=== PATIENT | female | born 1975 | race Caucasian/White ===

== ENCOUNTER 2016-05-04 17:46 | Emergency (ER) | payer MEDICAID ==
[~2016-05-04] VITALS: Ht 152.4 cm; Wt 91.0 kg
[2016-05-04 17:52] VITALS: Ht 152.4 cm; Wt 91.0 kg
[2016-05-04] MEDS ORDERED: IBUP400T22 PO (19:03)
[2016-05-04] MEDS ORDERED: CETI10CA PO (19:03)
[2016-05-04] MEDS ORDERED: FIORICET PO (19:03)
--- NOTE | 2016-05-04 19:10 | ERD ---
ER Documentation Chief Complaint Date/Time DATE: 05/04/16 TIME: 19:05 Chief Complaint HEADACHE & RT EAR PAIN RUNNY NOSE NASAL CONGESTION, NECK PAIN 1 WEEK ` HPI 41-year-old female presents here in emergency department for complaints of headache, right ear pain, runny nose nasal congestion, right-sided neck pain for one week. Patient dry the pain as throbbing pain, 6/10 scale, worse upon movement of the neck area radiates from the neck to the head, also feels congestion in the right ear. Patient has been having runny nose nasal congestion clear nasal discharge. Patient does not have any sore throat or ear pain. Patient denies any trauma in the neck. Patient denies any neck stiffness. Patient denies any blurry vision, numbness and tingling, focal weakness. Patient denies any trauma. Patient denies any loss of consciousness, changes in balance or memory. Patient did not take any medications to help with symptoms. Denies any ear discharge. Patient denies any foreign body in the ear. ROS All systems reviewed and are negative except as per history of present illness. Medications Home Meds Active Scripts Cetirizine Hcl* (Zyrtec*) 10 Mg Capsule, 10 MG PO DAILY, #30 TAB.CHEW Prov:ANDRADE OZUNA NP 05/04/16 Acetamin/Butalbital/Caffeine* (Fioricet*) [id number] Tab, 1 TAB PO Q6H Y for PAIN, #30 TAB Prov:ANDRADE OZUNA CHEMIST ASSISTANT 05/04/16 Ibuprofen* (Motrin*) 400 Mg Tab, 400 MG PO Q6H Y for PAIN AND OR ELEVATED TEMP, #30 TAB Prov:ANDRADE OZUNA CHEMIST ASSISTANT 05/04/16 Allergies Allergies: Coded Allergies: No Known Drug Allergies (Verified Allergy, Mild, 01/11/14) PMhx/Soc Medical and Surgical Hx: pt denies Medical Hx, pt denies Surgical Hx FmHx Family History: diabetes Physical Exam Vitals Vital Signs Date Time Temp Pulse Resp B/P Pulse Ox O2 Delivery O2 Flow Rate FiO2 05/04/16 17:52 98.0 72 18 141/86 100 Physical Exam GENERAL: The patient is well developed and appropriate for usual state of health, in no apparent distress. CHEST: Clear to auscultation bilaterally. There are no rales, wheezes or rhonchi. HEENT: Atraumatic. Ears: Normal tympanic membrane, no erythema or bulging. No ear canal swelling. No ear discharge. Nose: Erythematous nasal turbinates with clear nasal discharge. Throat: oropharynx erythematous with postnasal drip. No tonsillar swelling or tonsillar exudates. No lymphadenopathy. HEART: Regular rate and rhythm. No murmurs, clicks, rubs or gallops. No S3 or S4. ABDOMEN: Soft, nontender and nondistended. Good bowel sounds. No rebound or guarding. No gross peritonitis. No gross organomegaly or masses. No Sapp sign or McBurney point tenderness. BACK: No midline or flank tenderness. Noted muscle spasms on the right paraspinal aspect of the cervical spine, able to do full range of motion without any restriction. EXTREMITIES: Equal pulses bilaterally. There is no peripheral clubbing, cyanosis or edema. No focal swelling or erythema. Full range of motion. Grossly neurovascularly intact. NEURO: Alert and oriented. Cranial nerves 2-12 intact. Motor strength in all 4 extremities with 5/5 strength. Sensation grossly intact. Normal speech and gait. Negative Kernig's sign. Negative Brudzinski's sign. Bilateral eyes are PERRL EOM intact. Negative Romberg sign. Negative pronator drift. SKIN: There is no apparent rash or petechia. The skin is warm and dry. HEMATOLOGIC AND LYMPHATIC: There is no evidence of excessive bruising or lymphedema. No gross cervical, axillary, or inguinal lymphadenopathy. Procedures/MDM Medical Decision Making: Patient symptoms are most likely consistent with upper respiratory tract infection. Right ear pain most likely from congestion from the runny nose nasal congestion, no otitis media, otitis externa or mastoiditis noted. The symptoms of neurologic emergencies at this time. CT scan of the brain at indicated at this time. Any radiology exam is not indicated at this time. No trauma involved noted. No symptoms of meningitis. Patient does not have any fever. No neck stiffness, negative Brudzinski and Kernig sign. Patient appears well and is hemodynamically stable. Patient does not have any symptoms of sepsis at this time. Disposition: Home. Condition: Stable Prescriptions: Ibuprofen, Fioricet, Zyrtec Instructions: Patient is advised to take medications as prescribed. Patient is advised to rest. Patient advised to increase fluid intake, do humidifier at home and if possible, do salt water gargles. Patient is advised that if symptoms are worse, shortness of breath, uncontrolled fever, stridor, vomiting, worst signs and symptoms to return to emergency department immediately. Otherwise, patient is advised to follow up with primary doctor in 5-7 days. Departure Diagnosis: Primary Impression: Headache Headache type: unspecified Headache chronicity pattern: acute headache Intractability: not intractable Qualified Code: R51 - Acute nonintractable headache, unspecified headache type Additional Impressions: URI (upper respiratory infection) URI type: unspecified viral URI Qualified Code: J06.9 - Viral upper respiratory tract infection Neck strain Encounter type: initial encounter Qualified Code: S16.1XXA - Neck strain, initial encounter Condition: Stable Patient Instructions: Self-Care for Headaches, Neck Sprain/Strain, Uri, Viral, No Abx (Adult) Referrals: [facility] Usted se scott hecho un examen mdico de control que le indica que no est en dilip condicin que requiera tratamiento urgente en el Departamento de Emergencia. Un estudio ms profundo y el tratamiento de alfaro condicin pueden esperar sin ningn riesgo hasta que usted sea atendida/o en el consultorio de alfaro mdico o dilip cl claudette. Es responsabilidad suya arreglar dilip dilia para el seguimiento del laury. MANEJO DE CONDICIONES NO URGENTES EN EL FUTURO 1) Si usted tiene un mdico de atencin primaria: Usted debera llamar a alfaro mdico de atencin primaria antes de venir al departamento de emergencia. Despus de las horas de consultorio, alfaro doctor o alfaro asociado/a est disponible por telfono. El mdico o enfermero de fely en el servicio telefnico puede asesorarle por dave medio para atender el problema, o laury contrario se puede programar dilip dilia. 2) Si usted no tiene un mdico de atencin primaria: Llame al mdico o clnica de referencia que aparece abajo britton las horas de consultorio para hacer dilip dilia para que le vean. CLINICAS: [facility] [phone] [facility] [phone] [facility] [phone] [place] [address] [phone] [place] [address] [phone] [facility]. [phone] [address] [facility]. [facility] () Usted se scott hecho un examen mdico de control que le indica que no est en dilip condicin que requiera tratamiento urgente en el Departamento de Emergencia. Un estudio ms profundo y el tratamiento de alfaro condicin pueden esperar sin ningn riesgo hasta que usted sea atendida/o en el consultorio de alfaro mdico o dilip cl claudette. Es responsabilidad suya arreglar dilip dilia para el seguimiento del laury. MANEJO DE CONDICIONES NO URGENTES EN EL FUTURO 1) Si usted tiene un mdico de atencin primaria: Usted debera llamar a alfaro mdico de atencin primaria antes de venir al departamento de emergencia. Despus de las horas de consultorio, alfaro doctor o alfaro asociado/a est disponible por telfono. El mdico o enfermero de fely en el servicio telefnico puede asesorarle por dave medio para atender el problema, o laury contrario se puede programar dilip dilia. 2) Si usted no tiene un mdico de atencin primaria: Llame al mdico o condado institucions de referencia que aparece abajo britton las horas de consultorio para hacer dilip dilia para que le vean. SI USTED NO PUEDE PAGAR PARA JOSE ANTONIO UN MEDICO puede ir a: [facility] [address] [place] [address] [facility] [address] [place], [place] [id number] [place] [address] [address] [place] [address] [facility] [address] [place], [place] [id number] CUCHILANGO,ANDRADE Echavarria NP May 04, 2016 19:10
== END 2016-05-04 19:02 | disposition home or self-care (01) ==
LOC: E/R 17:46
DX: R51 Headache (principal); J06.9 Acute upper respiratory infection, unspecified; S16.1XXA Strain of muscle, fascia and tendon at neck level, initial encounter; X58.XXXA Exposure to other specified factors, initial encounter; Y92.9 Unspecified place or not applicable
CPT/HCPCS: 99282

== ENCOUNTER 2016-09-26 08:45 | Emergency (ER) | payer MEDICAID, OTHER ==
[~2016-09-26] VITALS: Wt 85.5 kg
[~2016-09-26 08:45] MED LIST: CETI10CA PO; FIORICET PO; IBUP400T22 PO
[2016-09-26] MEDS ORDERED: LIDOCAINE/MYLANTA 40 ML BTL PO ONE (10:00)
--- NOTE | 2016-09-26 10:09 | RADRPT ---
PROCEDURE: Chest Radiograph. CLINICAL INDICATION: Chest pain. TECHNIQUE: Single frontal chest radiograph. COMPARISON: Chest radiograph 01/11/2014 FINDINGS: The cardiomediastinal silhouette is within normal limits. No infiltrate or effusion is seen. Th e bones are intact. IMPRESSION: 1. Unremarkable chest radiograph. RPTAT: AA .Servando Orozco MD, MD Date Time Electronically viewed and signed by .Servando Orozco MD, on 09/26/2016 10:08 .B/
[2016-09-26] MEDS ORDERED: RANI150T9 PO (10:55)
--- NOTE | 2016-09-26 11:12 | ERD ---
ER Documentation Chief Complaint Date/Time DATE: 09/26/16 TIME: 11:06 Chief Complaint BACK PAIN, BURPING A LOT, NO N/V HPI 41-year-old female otherwise healthy comes emergency department with mid upper back pain and epigastric abdominal pain and belching that started last night when she tried to get up out of bed. Pain is achy, mild. Patient states that since then she has had belching, discomfort. She has not had any shortness of breath, chest pain, dizziness. She denies fevers, chills, cough. ROS All systems reviewed and are negative except as per history of present illness. Medications Home Meds Active Scripts Ranitidine Hcl* (Zantac*) 150 Mg Tablet, 150 MG PO DAILY Y for EPIGASTRIC PAIN, #30 TAB Prov:MO WATKINS PA-C 09/26/16 Cetirizine Hcl* (Zyrtec*) 10 Mg Capsule, 10 MG PO DAILY, #30 TAB.CHEW Prov:ANDRADE OZUNA CORRECTIONAL LIEUTENANT 05/04/16 Acetamin/Butalbital/Caffeine* (Fioricet*) [id number] Tab, 1 TAB PO Q6H Y for PAIN, #30 TAB Prov:ANDRADE OZUNA. CORRECTIONAL LIEUTENANT 05/04/16 Ibuprofen* (Motrin*) 400 Mg Tab, 400 MG PO Q6H Y for PAIN AND OR ELEVATED TEMP, #30 TAB Prov:ANDRADE OZUNA. CORRECTIONAL LIEUTENANT 05/04/16 Allergies Allergies: Coded Allergies: No Known Drug Allergies (Verified Allergy, Mild, 01/11/14) PMhx/Soc Medical and Surgical Hx: pt denies Medical Hx, pt denies Surgical Hx Hx Alcohol Use: No Hx Substance Use: No Hx Tobacco Use: No Physical Exam Vitals Vital Signs Date Time Temp Pulse Resp B/P Pulse Ox O2 Delivery O2 Flow Rate FiO2 09/26/16 08:49 97.1 65 17 136/81 96 Physical Exam General: Well-developed, well-nourished. The patient appears in no acute distress. HEENT: Head is normocephalic, atraumatic. No scleral icterus. Pupils are equal , round, and reactive. Oral mucous membranes are moist. No pharyngeal erythema. Neck: Supple. Nontender. Lungs: Clear to auscultation. Normal air movement. Heart: Regular rate and rhythm. S1 and S2 are normal. No murmurs, gallops, or rubs. Abdomen: Soft, nontender, nondistended. Bowel sounds are normoactive. Extremities: No clubbing or cyanosis. Normal pulses. Moving extremities x 4. No weakness. Neurologic: Alert and oriented 3. No focal deficits. Skin: Normal turgor. No rash or lesions. Results 24 hrs Current Medications Medications (Trade) Dose Ordered Sig/Joe Route PRN Reason Start Time Stop Time Status Last Admin Dose Admin Miscellaneous Medication (Gi Cocktail (2)) 40 ml ONCE ONCE PO 09/26/16 10:00 09/26/16 10:01 DC 09/26/16 09:55 PROCEDURE: Chest Radiograph. CLINICAL INDICATION: Chest pain. TECHNIQUE: Single frontal chest radiograph. COMPARISON: Chest radiograph 01/11/2014 FINDINGS: The cardiomediastinal silhouette is within normal limits. No infiltrate or effusion is seen. The bones are intact. IMPRESSION: 1. Unremarkable chest radiograph. RPTAT: AA .Servando Orozco MD, MD Date Time Electronically viewed and signed by .Servando Orozco MD, MD on 2016 10:08 .B/ Procedures/MDM ED course: Patient was given a GI cocktail. I reassessed her, she states that her pain is relieved and she does no longer has constant belching. MDM: 41-year-old female comes emergency room with upper back pain and belching that started after trying to get out of bed. At this time she was given a GI cocktail and observed was observed in the emergency department and that she feels much better at this time. Her pain is rated 0 out of 10 and her symptoms and bulging of resolved. My suspicion for pancreatitis, dissection or aneurysm, or other acute coronary process, is low given her symptoms improved with medication received here. She was advised to continue at home a prescription for ranitidine, eat small meals and return if she has any worsening any symptoms. Departure Diagnosis: Primary Impression: Back pain Condition: Good Patient Instructions: Gerd (Adult) Additional Instructions: Llame al doctor MAANA y jean marie dilip CURT PARA DENTRO DE 1-2 ADAM.Dgale a la secretaria que nosotros le instruimos hacer esta curt.Avise o llame si alfaro condicin se empeora antes de la curt. Regresa aqui si peor o no mejor. MO WATKINS PA-C September 26, 2016 11:12
== END 2016-09-26 11:24 | disposition home or self-care (01) ==
LOC: FTE 08:45
DX: M54.6 Pain in thoracic spine (principal)
CPT/HCPCS: 71010; Z7610

== ENCOUNTER 2017-09-07 09:18 | Emergency (ER) | END 2017-09-07 12:10 | disposition home or self-care (01) ==

== ENCOUNTER 2017-11-14 14:01 | Emergency (ER) | END 2017-11-14 15:56 | disposition home or self-care (01) ==

== ENCOUNTER 2018-10-17 18:22 | Emergency (ER) | payer OTHER ==
[~2018-10-17] VITALS: Ht 157.5 cm; Wt 92.4 kg
[~2018-10-17 18:22] MED LIST changes: +ACET500C5 PO; +IBUP-1561 PO; -IBUP400T22 PO; +NAPR-985 PO; +RANI150T35 PO
[2018-10-17 18:47] VITALS: Ht 157.5 cm; Wt 92.4 kg
[2018-10-17] MEDS ORDERED: SOD CHLORIDE 0.9% 500 ML IV STA (21:02)
[2018-10-17] MEDS ORDERED: ONDANSETRON 4 MG INJ IV STA (21:02)
[2018-10-17] MEDS ORDERED: morphine 4 MG/ML VIAL IV STA (21:02)
[2018-10-17] MEDS ORDERED: ONDA4TAB14 PO (23:27)
[2018-10-17] MEDS ORDERED: CIPR500T4 PO (23:27)
[2018-10-17] MEDS ORDERED: TRAM50TA2 PO (23:27)
[2018-10-17] MEDS ORDERED: CIPROFLOXACIN 400MG/D5W 200 ML IVPB ONE (23:30)
--- NOTE | 2018-10-18 00:05 | ERD ---
ER Documentation Chief Complaint Chief Complaint abdominal pain/back pain x 1 hour HPI This is a 43-year female complains of abdominal pain that radiates to her back for the past hour. Pain is located mainly in the right upper quadrant. Mild nausea but no vomiting. No fevers no chills. No other current complaints. No exacerbating alleviating factors. No sick contacts. No recent travel. Normal bowel movements. Last ate 4 hours ago which increased the pain. ROS All systems reviewed and are negative except as per history of present illness. Medications Home Meds Active Scripts Ondansetron (Ondansetron Odt) 4 Mg Tab.rapdis, 4 MG PO Q6H PRN for NAUSEA AND/OR VOMITING, #10 TAB Prov:JOCELINE CHRISTINA. 10/17/18 Tramadol HCl (Tramadol HCl) 50 Mg Tablet, 50 MG PO Q4 PRN for PAIN, #20 TAB Prov:JOCELINE CHRISTINA. 10/17/18 Ciprofloxacin Hcl* (Ciprofloxacin Hcl*) 500 Mg Tablet, 500 MG PO BID for 7 Days, TAB Prov:JOCELINE CHRISTINA. 10/17/18 Naproxen* (Naprosyn*) 500 Mg Tablet, 500 MG PO BID PRN for PAIN AND/OR INFLAMMATION, #30 TAB Prov:GEORGES BURNS PA-C 11/14/17 Acetaminophen* (Tylophen*) 500 Mg Capsule, 1 CAP PO Q6H PRN for PAIN AND OR ELEVATED TEMP, #30 CAP Prov:GEORGES BURNS PA-C 09/07/17 Naproxen* (Naprosyn*) 500 Mg Tablet, 500 MG PO BID PRN for PAIN AND/OR INFLAMMATION, #30 TAB Prov:GEORGES BURNS PA-C 09/07/17 Ranitidine Hcl* (Zantac*) 150 Mg Tablet, 150 MG PO DAILY PRN for EPIGASTRIC PAIN, #30 TAB Prov:MO WATKINS PA-C 09/26/16 Cetirizine Hcl* (Zyrtec*) 10 Mg Capsule, 10 MG PO DAILY, #30 TAB.CHEW Prov:ANDRADE OZUNA NP 05/04/16 Acetamin/Butalbital/Caffeine* (Fioricet*) [id number] Tab, 1 TAB PO Q6H PRN for PAIN, #30 TAB Prov:ANDRADE OZUNA. THIRD GRADE TEACHER 05/04/16 Ibuprofen* (Motrin*) 400 Mg Tab, 400 MG PO Q6H PRN for PAIN AND OR ELEVATED TEMP, #30 TAB Prov:ANDRADE OZUNA. THIRD GRADE TEACHER 05/04/16 Allergies Allergies: Coded Allergies: No Known Drug Allergies (Verified Allergy, Mild, 01/11/14) PMhx/Soc Medical and Surgical Hx: pt denies Medical Hx, pt denies Surgical Hx History of Surgery: No Anesthesia Reaction: No Hx Neurological Disorder: No Hx Respiratory Disorders: No Hx Cardiac Disorders: No Hx Psychiatric Problems: No Hx Miscellaneous Medical Probl: No Hx Alcohol Use: Yes (3 beers yesterday at a alliance party) Hx Substance Use: No Hx Tobacco Use: No Smoking Status: Never smoker Physical Exam Vitals Vital Signs Date Temp Pulse Resp B/P (MAP) Pulse Ox O2 O2 Flow FiO2 Time Delivery Rate 10/17/18 62 16 127/76 97 Room Air 23:17 (93) 10/17/18 98.7 59 19 148/77 98 Room Air 21:39 (100) 10/17/18 98.0 62 18 133/77 98 18:47 (95) Physical Exam Const: No acute distress Head: Atraumatic Eyes: Normal Conjunctiva ENT: Normal External Ears, Nose and Mouth. Neck: Full range of motion. No meningismus. Resp: Clear to auscultation bilaterally Cardio: Regular rate and rhythm, no murmurs Abd: Soft, non tender, non distended. Normal bowel sounds Skin: No petechiae or rashes Back: No midline or flank tenderness Ext: No cyanosis, or edema Neur: Awake and alert Psych: Normal Mood and Affect Result Diagram: 10/17/18212110/17/182121 Results 24 hrs Laboratory Tests Test 10/17/18 21:22 10/17/18 21:41 White Blood Count 7.7 10^3/ul Red Blood Count 3.89 10^6/ul Hemoglobin 11.5 g/dl Hematocrit 36.0 % Mean Corpuscular Volume 92.5 fl Mean Corpuscular Hemoglobin 29.6 pg Mean Corpuscular Hemoglobin Concent 31.9 g/dl Red Cell Distribution Width 13.2 % Platelet Count 277 10^3/UL Mean Platelet Volume 10.7 fl Immature Granulocytes % 0.300 % Neutrophils % 59.5 % Lymphocytes % 28.1 % Monocytes % 7.7 % Eosinophils % 4.1 % Basophils % 0.3 % Nucleated Red Blood Cells % 0.0 /100WBC Immature Granulocytes # 0.020 10^3/ul Neutrophils # 4.6 10^3/ul Lymphocytes # 2.2 10^3/ul Monocytes # 0.6 10^3/ul Eosinophils # 0.3 10^3/ul Basophils # 0.0 10^3/ul Nucleated Red Blood Cells # 0.0 10^3/ul Prothrombin Time 12.1 Sec Prothrombin Time Ratio 0.9 INR International Normalized Ratio 0.89 Activated Partial Thromboplast Time 27.5 Sec Urine Color YELLOW Urine Clarity SLIGHTLY CLOUDY Urine pH 5.0 Urine Specific Lapel 1.034 Urine Ketones TRACE mg/dL Urine Nitrite POSITIVE mg/dL Urine Bilirubin NEGATIVE mg/dL Urine Urobilinogen 1+ mg/dL Urine Leukocyte Esterase NEGATIVE Yoselin/ul Urine Microscopic RBC 3 /HPF Urine Microscopic WBC 2 /HPF Urine Squamous Epithelial Cells FEW /HPF Urine Bacteria FEW /HPF Urine Mucus MODERATE /HPF Urine Hemoglobin 1+ mg/dL Urine Glucose NEGATIVE mg/dL Urine Total Protein NEGATIVE mg/dl Sodium Level 141 mmol/L Potassium Level 4.2 mmol/L Chloride Level 106 mmol/L Carbon Dioxide Level 28 mmol/L Anion Gap 7 Blood Urea Nitrogen 20 mg/dl Creatinine 0.63 mg/dl Est Glomerular Filtrat Rate mL/min > 60 mL/min Glucose Level 116 mg/dl Calcium Level 8.8 mg/dl Total Bilirubin 0.3 mg/dl Direct Bilirubin 0.00 mg/dl Indirect Bilirubin 0.3 mg/dl Aspartate Amino Transf (AST/SGOT) 22 IU/L Alanine Aminotransferase (ALT/SGPT) 30 IU/L Alkaline Phosphatase 96 IU/L Total Protein 7.5 g/dl Albumin 4.1 g/dl Globulin 3.40 g/dl Albumin/Globulin Ratio 1.20 Lipase 111 U/L POC Beta HCG, Qualitative NEGATIVE Current Medications Medications Dose Sig/Joe Start Time Status Last (Trade) Ordered Route PRN Stop Time Admin Dose Reason Admin Sodium 500 ml @ Q1H STAT 10/17/18 DC 10/17/18 Chloride 500 mls/hr IV 21:02 21:28 6/16/19 22:01 Morphine 4 mg ONCE STAT 10/17/18 DC 10/17/18 Sulfate IV 21:02 21:28 (morphine) 10/17/18 21:04 Ondansetron 4 mg ONCE STAT 10/17/18 DC 10/17/18 HCl (Zofran IV 21:02 21:28 Inj) 10/17/18 21:04 200 ml @ ONCE ONCE 10/17/18 10/17/18 Ciprofloxacin 200 mls/hr IVPB 23:30 23:25 / Dextrose 10/18/18 00:29 Procedures/MDM Medical decision makin female abdominal pain. She has evidence of gallstones but she also has evidence of UTI. She is been treated with Cipro here appears to be discharged home with Cipro Zofran and tramadol. Patient's gastrointestinal symptoms have stabilized while in the department. No evidence of severe dehydration, sepsis, or surgical abdomen. Extensive discussion with family and patient that occult disease cannot be ruled out. 8 hour recheck for repeat abdominal exam is planned. Departure Diagnosis: Primary Impression: Abdominal pain Abdominal location: unspecified location Qualified Codes: R10.9 - Unspecified abdominal pain Condition: Stable Patient Instructions: Understanding Urinary Tract Infections (UTIs), Gallstones JOCELINE CHRISTINA Oct 18, 2018 00:05
[2018-10-18 00:38] VITALS: BP 112/72; PULSE 70; RESP 16
== END 2018-10-18 00:45 | disposition home or self-care (01) ==
LOC: E/R 18:22
DX: R10.11 Right upper quadrant pain (principal); R11.0 Nausea
CPT/HCPCS: 36415; 71045; 74176; 80053; 81001; 81025; 83690; 85025; 85610; 85730; 96361; 96374; 96375; J0744; J2270; J2405; J7040; Z7502